=== PATIENT | female | born 1950 | race Caucasian/White ===

== ENCOUNTER 2020-08-07 15:19 | Emergency (ER) | payer MEDICARE, OTHER ==
[2020-08-07] MEDS ORDERED: traMADol 50 MG TABLET PO STA (15:38)
[2020-08-07] MEDS ORDERED: IBUPROFEN 600 MG TABLET PO STA (15:38)
--- NOTE | 2020-08-07 15:40 | ED Physician Documentation ---
PD HPI UPPER EXT INJURY - Stated complaint Stated Complaint: LT HAND INJURY - Chief complaint Chief Complaint: Ext Problem - History obtained from History obtained from: Patient - Additonal information Additional information: She shut her hand in the car door about an hour ago and has moderate to severe left hand pain. She has a history of surgery, looks like of the first CMC on that side for arthritis. Review of Systems Constitutional: denies: Fever, Chills Eyes: reports: Reviewed and negative Ears: denies: Loss of hearing, Ear pain Nose: denies: Rhinorrhea / runny nose, Congestion Cardiac: denies: Palpitations Respiratory: denies: Dyspnea, Cough PD PAST MEDICAL HISTORY - Past Medical History Cardiovascular: Hypertension, High cholesterol Endocrine/Autoimmune: Type 2 diabetes Psych: Depression - Past Surgical History Past Surgical History: Yes Ortho: Spine surgery - Present Medications Home Medications: Ambulatory Orders Medication Instructions Recorded Confirmed Escitalopram Oxalate [Lexapro] 20 mg PO DAILY 03/08/15 03/08/15 Meclizine HCl [Antivert] 1 tab PO Q8H PRN #20 tablet 03/08/15 Metoprolol Tartrate [Lopressor] 50 mg DAILY 03/08/15 03/08/15 Pitavastatin Calcium [Livalo] 4 mg QPM 03/08/15 03/08/15 buPROPion HCl [Bupropion HCl Sr] 300 mg DAILY 03/08/15 03/08/15 Tramadol HCl [Ultram] 50 mg PO Q6H PRN #15 tablet 08/07/20 - Allergies Allergies/Adverse Reactions: Allergies Allergy/AdvReac Type Severity Reaction Status Date / Time codeine Allergy Hives Verified 08/07/20 15:26 - Social History Does the pt smoke?: No Smoking Status: Never smoker Does the pt drink ETOH?: Yes Does the pt have substance abuse?: No - Immunizations Immunizations are current?: Yes PD ED PE NORMAL - Vitals Vital signs reviewed: Yes - General General: Alert and oriented X 3, No acute distress - Extremities Extremities: Other (Well-healed surgical scar over the first CMC of the left hand and she is tender in that area, also the proximal to mid shaft fifth metacarpal. Full range of motion and normal neurovascular function at the tips of all digits.) - Neuro Neuro: Alert and oriented X 3, Normal speech Results - Vitals Vitals: Vital Signs - 24 hr 08/07/20 15:23 Temperature 36.8 C Heart Rate 84 Respiratory 18 Rate Blood Pressure 150/72 H O2 Saturation 97 Oxygen O2 Source Room air - Rads (name of study) L hand Radiology: EMP read contemporaneously Procedures - Splint (location) L hand Splint applied by: Physician Type of splint: Fiberglass, Short arm, Thumb spica Other: Patient tolerated well, No complications, Neurovascular intact PD MEDICAL DECISION MAKING - ED course ED course: XR demonstrates irregularity which is probably from previous arthritic changes but out of an abundance of caution she was splinted and advised to have repeat films done in 10 to 14 days. She may be at home in [place] by then and was given a copy of the x-ray on CD to aid for comparison. Departure - Departure Disposition: 01 Home, Self Care Clinical Impression: Crush injury of hand Qualifiers: Encounter type: initial encounter Laterality: left Qualified Code(s): S67.22XA - Crushing injury of left hand, initial encounter Condition: Good Record reviewed to determine appropriate education?: Yes Instructions: ED Contusion Hand Prescriptions: Tramadol HCl [Ultram] 50 mg PO Q6H PRN #15 tablet PRN Reason: Pain Comments: As discussed, the x-ray does not show a clear fracture, but the radiologist was concerned about the base of the first metacarpal. Recommended continued splinting and repeat x-rays in 10 to 14 days. Wherever you are then take the copy of the x-rays on CD with you for repeat imaging for comparison. Return for new or worsening symptoms.
--- NOTE | 2020-08-07 16:24 | XRAY Report ---
PROCEDURE: Hand 3 View LT INDICATIONS: hand inj TECHNIQUE: 3 views of the hand(s) acquired. COMPARISON: None FINDINGS: Bones: There is minimal irregularity of the base of the left hand first metacarpal without definite fracture line or cortical disruption identified. There is overlying soft tissue swelling. There are a lso moderate degenerative changes at the first carpometacarpal joint and triscaphe joint. No dislocat ions. No suspicious bony lesions. Soft tissues: No suspicious soft tissue calcifications. IMPRESSION: Subtle irregularity involving the base of the left hand first metacarpal without definite fracture or cortical disruption identified. There is moderate overlying soft tissue swelling. Given mechanism of injury, recommend immobilization and repeat imaging in 10-14 days. Reviewed by: Rajinder Sims MD on 08/07/2020 3:23 PM [facility] Approved by: Rajinder Sims MD on 08/07/2020 3:23 PM [facility] Station ID: [id number]
[2020-08-07 16:39] VITALS: BP 126/64
== END 2020-08-07 16:40 | disposition home or self-care (01) ==
LOC: ED 15:19
DX: S67.22XA Crushing injury of left hand, initial encounter (principal); W23.0XXA Caught, crushed, jammed, or pinched between moving objects, initial encounter; I10 Essential (primary) hypertension; E11.9 Type 2 diabetes mellitus without complications
CPT/HCPCS: 29125; 73130; 99283; A9270